=== PATIENT | female | born 1965 | race Two or more races ===

== ENCOUNTER 2019-01-15 21:28 | Emergency (ER) | payer MEDICAID ==
[~2019-01-15] VITALS: Ht 157.5 cm; Wt 66.0 kg
[2019-01-15] MEDS ORDERED: IBUPROFEN 400MG TABLET PO ONE (23:15)
[2019-01-16 02:00] VITALS: BP 160/90
== END 2019-01-16 02:01 | disposition home or self-care (01) ==
LOC: ER 21:28
DX: M54.2 Cervicalgia (principal); M54.5 Low back pain; K21.9 Gastro-esophageal reflux disease without esophagitis; I10 Essential (primary) hypertension; E03.9 Hypothyroidism, unspecified; E78.5 Hyperlipidemia, unspecified; F17.200 Nicotine dependence, unspecified, uncomplicated; Z98.890 Other specified postprocedural states; Z88.8 Allergy status to other drugs, medicaments and biological substances; Y99.8 Other external cause status; V49.9XXA Car occupant (driver) (passenger) injured in unspecified traffic accident, initial encounter; Y93.89 Activity, other specified; Y92.488 Other paved roadways as the place of occurrence of the external cause
CPT/HCPCS: 72100; 81025; 99284